=== PATIENT | female | born 1950 | race Caucasian/White ===

== ENCOUNTER 2017-12-29 14:53 | Emergency (ER) | payer BC, MEDICARE | END 2017-12-29 20:15 | disposition home or self-care (01) | LOC: E/R 14:53 | DX: F10.920 Alcohol use, unspecified with intoxication, uncomplicated (principal) | CPT/HCPCS: 99283 ==

== ENCOUNTER 2018-01-28 17:29 | Emergency (ER) | payer BC, MEDICARE | END 2018-01-29 03:00 | disposition home or self-care (01) | LOC: E/R 01-29 00:02 | DX: F10.929 Alcohol use, unspecified with intoxication, unspecified (principal) | CPT/HCPCS: 99282 ==